=== PATIENT | male | born 1930 | race Caucasian/White ===

== ENCOUNTER 2020-02-28 08:56 | Inpatient (IN) | payer MEDICARE ==
[~2020-02-28] VITALS: Ht 167.6 cm; Wt 68.9 kg
[~2020-02-28 08:56] MED LIST: ACTOS30 MG PO; ATORVASTATIN CA10 MG PO; AVODART0.5 MG PO; GLYBURIDE5 MG PO; HYDROCHLOROTH12.5 M1 PO; JANUVIA100 MG PO; TERAZOSIN HCL1 MG PO
[2020-02-28 09:55] LABS: BASOPHILS % 0.5 % (0.0-1.0); EOSINOPHILS # (AUTO) 0.1 (0.0-0.4); EOSINOPHILS % 0.9 % (0.0-6.0); HEMATOCRIT 30.9 % (38.2-49.6); HEMOGLOBIN 10.2 g/dL (14.0-18.0); LYMPHOCYTES # (AUTO) 0.6 (1.0-3.2); LYMPHOCYTES % 8.6 % (18.0-39.1); MEAN CORPUSCULAR HEMOGLOBIN 29.3 pg (28-32); MEAN CORPUSCULAR VOLUME 88.8 fL (81-99); MONOCYTES # (AUTO) 0.5 (0.2-0.8); MONOCYTES % 7.3 % (4.4-11.3); NEUTROPHILS # (AUTO) 5.3 (2.1-6.9); NEUTROPHILS % 82.4 % (38.7-80.0); PLATELET COUNT 229 x10e3/uL (140-360); RED BLOOD COUNT 3.48 x10e6/uL (4.3-5.7); RED CELL DISTRIBUTION WIDTH 13.3 % (11.7-14.4)
[2020-02-28 10:03] LABS: ALANINE AMINOTRANSFERASE 18 IU/L (0-55); ALBUMIN 3.7 g/dL (3.5-5.0); ALBUMIN/GLOBULIN RATIO 1.1 (0.8-2.0); ALKALINE PHOSPHATASE 141 IU/L (40-150); BLOOD UREA NITROGEN 22 mg/dL (7-26); BUN/CREATININE RATIO 21 (6-25); CALCIUM 8.8 mg/dL (8.4-10.2); CARBON DIOXIDE 29 mmol/L (22-29); CHLORIDE 91 mmol/L (98-107); CREATINE KINASE 120 IU/L (30-200); CREATININE, SERUM 1.06 mg/dL (0.72-1.25); EST GLOMERULAR FILTRATION RATE > 60 ML/MIN (60-); GLUCOSE 195 mg/dL (74-118); MAGNESIUM 1.7 MG/DL (1.3-2.1); SODIUM 129 mmol/L (136-145)
[2020-02-28 10:04] LABS: CLARITY,URINE CLEAR (CLEAR); COLOR,URINE YELLOW (YELLOW)
[2020-02-28 10:05] LABS: KETONES,URINE NEGATIVE (NEGATIVE); LEUKOCYTE ESTERASE ,URINE NEGATIVE (NEGATIVE); NITRITE,URINE NEGATIVE (NEGATIVE); PROTEIN,URINE DIPSTICK NEGATIVE (NEGATIVE); URINE UROBILINOGEN 0.2 mg/dL (0.2 - 1)
[2020-02-28] MEDS ORDERED: FLOMAX0.4 MG PO (10:06)
[2020-02-28] MEDS ORDERED: ASPIRIN81 MG PO (10:06)
[2020-02-28] MEDS ORDERED: LASIX40 MG PO (10:06)
[2020-02-28] MEDS ORDERED: PLAVIX75 MG PO (10:06)
[2020-02-28] MEDS ORDERED: LISINOPRIL2.5 MG PO (10:06)
[2020-02-28] MEDS ORDERED: FINASTERIDE5 MG PO (10:06)
[2020-02-28] MEDS ORDERED: GLIMEPIRIDE2 MG PO (10:08)
[2020-02-28 10:26] LABS: INR 1.19; PROTHROMBIN TIME 15.7 seconds (11.9-14.5)
[2020-02-28 10:27] LABS: PARTIAL THROMBOPLASTIN TIME 31.5 seconds (23.8-35.5)
[2020-02-28 10:28] LABS: EPITHELIAL CELLS,URINE FEW /LPF
[2020-02-28] MEDS ORDERED: FUROSEMIDE INJ 10 MG/ML 4 ML VIAL IV NR (11:00)
[2020-02-28 13:35] VITALS: BP 133/83
[2020-02-28 13:40] VITALS: BP 133/83
[2020-02-28] MEDS ORDERED: DEXTROSE 50% SYRINGE 50 ML IV PRN ×2 (15:00)
[2020-02-28] MEDS ORDERED: INSULIN REGULAR, HUMAN 100 UNIT/1 ML 3ML VIAL SQ SCH (16:30)
[2020-02-28] MEDS: FUROSEMIDE INJ 10 MG/ML 4 ML VIAL IV SCH (17:10)
[2020-02-28] MEDS: INSULIN REGULAR, HUMAN 100 UNIT/1 ML 3ML VIAL SQ SCH ×2 (17:10→20:16)
[2020-02-28 17:14] LABS: CREATINE KINASE MB 3.4 ng/mL (0-5.0)
[2020-02-28 20:00] VITALS: BP 119/60
[2020-02-28 20:58] VITALS: BP 119/61
[2020-02-29] VITALS (10 sets, daily range): BP systolic 102–133; BP diastolic 50–75
[2020-02-29 05:40] LABS: BASOPHILS % 0.5 % (0.0-1.0); EOSINOPHILS # (AUTO) 0.1 (0.0-0.4); EOSINOPHILS % 2.1 % (0.0-6.0); HEMATOCRIT 30.1 % (38.2-49.6); LYMPHOCYTES % 16.8 % (18.0-39.1); MEAN CORPUSCULAR HEMOGLOBIN 29.1 pg (28-32); MEAN CORPUSCULAR HGB CONC 33.2 g/dL (31-35); MEAN CORPUSCULAR VOLUME 87.5 fL (81-99); MONOCYTES # (AUTO) 0.7 (0.2-0.8); MONOCYTES % 11.1 % (4.4-11.3); NEUTROPHILS # (AUTO) 4.3 (2.1-6.9); NEUTROPHILS % 69.3 % (38.7-80.0); PLATELET COUNT 227 x10e3/uL (140-360); RED BLOOD COUNT 3.44 x10e6/uL (4.3-5.7); RED CELL DISTRIBUTION WIDTH 13.6 % (11.7-14.4)
[2020-02-29 06:47] LABS: ALBUMIN 3.3 g/dL (3.5-5.0); ALBUMIN/GLOBULIN RATIO 1.1 (0.8-2.0); ANION GAP 13.3 mmol/L (8-16); CALCIUM 8.4 mg/dL (8.4-10.2); CREATININE, SERUM 1.15 mg/dL (0.72-1.25); POTASSIUM 4.3 mmol/L (3.5-5.1)
[2020-02-29] MEDS: INSULIN REGULAR, HUMAN 100 UNIT/1 ML 3ML VIAL SQ SCH ×4 (07:30→20:52)
[2020-02-29 07:51] LABS: CREATINE KINASE MB 3.3 ng/mL (0-5.0)
[2020-02-29] MEDS: CLOPIDOGREL BISULFATE 75 MG TAB PO SCH (09:00)
[2020-02-29] MEDS: ASPIRIN 81 MG CHEW TAB PO SCH (09:00)
[2020-02-29] MEDS: GLIMEPIRIDE 2 MG TAB PO SCH (09:17)
[2020-02-29] MEDS: TAMSULOSIN HCL 0.4 MG CAP PO SCH (09:17)
[2020-02-29] MEDS: FUROSEMIDE INJ 10 MG/ML 4 ML VIAL IV SCH ×2 (09:17→17:21)
[2020-02-29] MEDS: LISINOPRIL 2.5 MG TAB PO SCH (09:18)
[2020-02-29] MEDS: FINASTERIDE 5 MG TAB PO SCH (09:18)
[2020-02-29] MEDS: ATORVASTATIN 10 MG TAB PO SCH (21:03)
[2020-03-01] VITALS (7 sets, daily range): BP systolic 103–124; BP diastolic 51–64
[2020-03-01 05:13] LABS: BASOPHILS # (AUTO) 0.1 (0.0-0.1); BASOPHILS % 0.8 % (0.0-1.0); EOSINOPHILS # (AUTO) 0.2 (0.0-0.4); HEMATOCRIT 30.4 % (38.2-49.6); HEMOGLOBIN 10.1 g/dL (14.0-18.0); LYMPHOCYTES # (AUTO) 0.8 (1.0-3.2); LYMPHOCYTES % 12.9 % (18.0-39.1); MEAN CORPUSCULAR HEMOGLOBIN 29.1 pg (28-32); MEAN CORPUSCULAR HGB CONC 33.2 g/dL (31-35); MEAN CORPUSCULAR VOLUME 87.6 fL (81-99); MONOCYTES # (AUTO) 0.7 (0.2-0.8); MONOCYTES % 11.1 % (4.4-11.3); NEUTROPHILS # (AUTO) 4.5 (2.1-6.9); NEUTROPHILS % 71.9 % (38.7-80.0); PLATELET COUNT 234 x10e3/uL (140-360); RED BLOOD COUNT 3.47 x10e6/uL (4.3-5.7); RED CELL DISTRIBUTION WIDTH 13.6 % (11.7-14.4)
[2020-03-01 05:47] LABS: ALANINE AMINOTRANSFERASE 15 IU/L (0-55); ALBUMIN 3.2 g/dL (3.5-5.0); ALBUMIN/GLOBULIN RATIO 1.1 (0.8-2.0); ALKALINE PHOSPHATASE 113 IU/L (40-150); ANION GAP 14.8 mmol/L (8-16); CALCIUM 8.5 mg/dL (8.4-10.2); CARBON DIOXIDE 30 mmol/L (22-29); CHLORIDE 93 mmol/L (98-107); GLUCOSE 75 mg/dL (74-118); POTASSIUM 3.8 mmol/L (3.5-5.1); SODIUM 134 mmol/L (136-145)
[2020-03-01 06:13] LABS: BLOOD UREA NITROGEN 30 mg/dL (7-26); BUN/CREATININE RATIO 25 (6-25)
[2020-03-01] MEDS: INSULIN REGULAR, HUMAN 100 UNIT/1 ML 3ML VIAL SQ SCH ×4 (07:30→21:00)
[2020-03-01] MEDS: GLIMEPIRIDE 2 MG TAB PO SCH (09:05)
[2020-03-01] MEDS: FUROSEMIDE INJ 10 MG/ML 4 ML VIAL IV SCH ×2 (09:06→16:50)
[2020-03-01] MEDS: CLOPIDOGREL BISULFATE 75 MG TAB PO SCH (09:06)
[2020-03-01] MEDS: FINASTERIDE 5 MG TAB PO SCH (09:06)
[2020-03-01] MEDS: TAMSULOSIN HCL 0.4 MG CAP PO SCH (09:07)
[2020-03-01] MEDS: LISINOPRIL 2.5 MG TAB PO SCH (09:15)
[2020-03-01] MEDS: ASPIRIN 81 MG CHEW TAB PO SCH (09:15)
[2020-03-01] MEDS: ATORVASTATIN 10 MG TAB PO SCH (21:25)
[2020-03-02 01:28] VITALS: BP 125/80
[2020-03-02 06:26] VITALS: BP 130/68
[2020-03-02 07:30] VITALS: BP 118/36
[2020-03-02 08:02] VITALS: BP 118/36
[2020-03-02 08:18] VITALS: BP 118/36
[2020-03-02] MEDS: INSULIN REGULAR, HUMAN 100 UNIT/1 ML 3ML VIAL SQ SCH (08:30)
[2020-03-02] MEDS: FUROSEMIDE INJ 10 MG/ML 4 ML VIAL IV SCH (09:00)
[2020-03-02] MEDS: GLIMEPIRIDE 2 MG TAB PO SCH (09:00)
[2020-03-02] MEDS: TAMSULOSIN HCL 0.4 MG CAP PO SCH (09:58)
[2020-03-02] MEDS: ASPIRIN 81 MG CHEW TAB PO SCH (09:58)
[2020-03-02] MEDS: LISINOPRIL 2.5 MG TAB PO SCH (09:58)
[2020-03-02] MEDS: CLOPIDOGREL BISULFATE 75 MG TAB PO SCH (09:58)
[2020-03-02] MEDS: FINASTERIDE 5 MG TAB PO SCH (09:58)
== END 2020-03-02 10:05 | disposition home or self-care (01) | DRG 291 ==
LOC: ER 09:00 → ERHOLD 11:26 → MED/SURG2 13:21
PROVIDERS: ADMIT Family Medicine; ATTEND Family Medicine
PROC: 0W9B3ZZ Drainage of Left Pleural Cavity, Percutaneous Approach (ICD-10-PCS; principal; 2020-02-29)
DX: I13.0 Hypertensive heart and chronic kidney disease with heart failure and stage 1 through stage 4 chronic kidney disease, or unspecified chronic kidney disease (principal); I50.23 Acute on chronic systolic (congestive) heart failure; J90 Pleural effusion, not elsewhere classified; N18.9 Chronic kidney disease, unspecified; E78.5 Hyperlipidemia, unspecified; N40.0 Benign prostatic hyperplasia without lower urinary tract symptoms; I25.10 Atherosclerotic heart disease of native coronary artery without angina pectoris; E11.9 Type 2 diabetes mellitus without complications; E11.22 Type 2 diabetes mellitus with diabetic chronic kidney disease; N18.32 Chronic kidney disease, stage 3b; D63.8 Anemia in other chronic diseases classified elsewhere; Z95.0 Presence of cardiac pacemaker; Z20.828 Contact with and (suspected) exposure to other viral communicable diseases
CPT/HCPCS: 32555; 36415; 71045; 74470; 80053; 81001; 82550; 82553; 82948; 83735; 83880; 84484; 85025; 85610; 85730; 87040; 87086; 93005; 93306; 99284; J1817; J1940; U0002